=== PATIENT | male | born 1950 | race Caucasian/White ===

== ENCOUNTER 2019-09-13 09:05 | Day surgery (SDC) | payer OTHER, MEDICARE ==
[~2019-09-13] VITALS: Ht 182.9 cm; Wt 104.3 kg
--- NOTE | ~2019-09-13 | O ---
[facility] [place] [address] OPERATIVE REPORT Name: CATERINA TAYLOR Room #: 150-7 [facility]..#: [id number] Admission: 09/13/19 Attend Phys: Heron Espinal MD Discharge: Date of : 46 Report #: [id number] THIS REPORT FOR: //name// CC: Juice Espinal DATE OF SERVICE: 09/13/2019 SURGEON: Heron Espinal MD SUPERINTENDENT LOCAL: None. PREOPERATIVE DIAGNOSIS: Bilateral upper lid dermatochalasia with superior visual field defect. POSTOPERATIVE DIAGNOSIS: Bilateral upper lid dermatochalasia with superior visual field defect. OPERATION PERFORMED: Bilateral upper lid functional blepharoplasty. ANESTHESIA: Local with IV sedation. COMPLICATIONS: None. INDICATIONS FOR SURGERY: This patient has acquired upper lid dermatochalasia with superior visual field loss both eyes because of excessive upper lid tissues to include skin and fat. Visual field testing demonstrates dense superior visual defects. Retesting with the upper lid elevated shows an improvement in visual field loss of over 30% and in excess of 12 degrees. The current procedures are undertaken in order to improve the patient's visual function. Informed consent was obtained to include but not limited to the loss of vision, bleeding, infection, scarring, failure to improve the problem and need for further surgery. DESCRIPTION OF OPERATION: The patient was taken to the operating room, where 2% Xylocaine with epinephrine mixed with equal parts of 0.75% Marcaine with Wydase was administered transcutaneously to each upper lid. The patient was then prepped and draped in the usual sterile fashion and a skin-marking pen was then utilized to outline an upper lid crease that was symmetrical on each side. Graefe forceps were then used to quantitate the redundant upper lid skin and it was similarly outlined. The incisions were then made with Harriet scissors and a skin-muscle flap removed from each side with high-temp cautery. Hemostasis was achieved with the monopolar cautery as it was throughout the case. The [address] [address] OPERATIVE REPORT Name: CLAUDIACATERINA Pabon Room #: 150-7 [facility]..#: [id number] Admission: 09/13/19 Attend Phys: Heron Espinal MD Discharge: Date of : 46 Report #: [id number] orbital septum was then identified and the central and medial fat pads were inspected. The redundant soft tissue was then sculpted with the monopolar cautery. The upper lid crease was then reformed with tightening of the pretarsal orbicularis muscle. The upper lid crease was then further reformed with multiple interrupted 6-0 chromic sutures. The skin was then closed with a running 6-0 plain gut suture. The wound was then cleaned and dressed with ophthalmic antibiotic ointment and a nonstick dressing. The patient was transported to the recovery area, where cold compresses were applied, having tolerated the procedure well with no anesthetic or operative complications being noted. By: 1100 [id number] Heron Espinal MD /nt
[~2019-09-13 09:05] MED LIST: BETAPACE AF160 MG PO; CARBIDOPA-LEVO1 EAC9 PO; CARTIA XT240 M1 PO; CLONAZEPAM 1 MG1 M1 PO; CO Q-10200 MG PO; ESCITALOPRAM OX20 MG PO; GINGER ROOT1 GM PO; HYDROCODON-ACE1 EAC8 PO; POTASSIUM CHLO10 MEQ PO; SIMVASTATIN20 MG PO; STOOL SOFTENER240 MG PO; TRIAMTERENE-HC1 EAC2 PO; WARFARIN SODIUM3 MG PO; WARFARIN SODIUM6 MG PO
[2019-09-13 09:44] LABS: CALCIUM 9.6 mg/dL (8.5-10.1); POTASSIUM 4.5 mmol/L (3.5-5.1)
[2019-09-13 09:46] LABS: INR 1.1; PROTIME 11.1 Seconds (9.3-11.4)
[2019-09-13 09:47] VITALS: BP 113/66
== END 2019-09-13 11:40 | disposition home or self-care (01) ==
LOC: OR 09:05 → TBA 09:06 → OR 09:55
PROVIDERS: Ophthalmology
DX: H02.834 Dermatochalasis of left upper eyelid (principal); H02.831 Dermatochalasis of right upper eyelid; H53.462 Homonymous bilateral field defects, left side; H53.461 Homonymous bilateral field defects, right side; I10 Essential (primary) hypertension; I48.91 Unspecified atrial fibrillation; G20 Parkinson's disease; F32.9 Major depressive disorder, single episode, unspecified; G47.30 Sleep apnea, unspecified; Z79.01 Long term (current) use of anticoagulants; Z85.46 Personal history of malignant neoplasm of prostate; Z98.890 Other specified postprocedural states; Z79.899 Other long term (current) drug therapy; Z88.8 Allergy status to other drugs, medicaments and biological substances
CPT/HCPCS: 50010; 50101; 50386; 50398; 51636; 56531; 62110; 62850; 70005

== ENCOUNTER → 2020-08-04 | Outpatient (CLI) | payer OTHER, MEDICARE ==
[~2020-08-04] MED LIST changes: +B12 SUBLING; +BYSTOLIC10 MG PO; +CARTIA XT PO; +COQ-10100 MG PO; +COUMADIN6 MG PO; +IBUPROFEN PO; +LISINOPRIL20 MG PO; +MAGNESIUM250 M1 PO; +OMEPRAZOLE 20 M20 MG PO; +PERCOCET 5-3251 EACH PO; +POTASSIUM; +TIKOSYN.5 PO; +VITAMIN D-32000 UNIT PO; +WARFARIN PO
== END ==
LOC: RAD 09:17
PROVIDERS: ATTEND Psychiatry & Neurology Neurology
DX: R13.12 Dysphagia, oropharyngeal phase (principal)